=== PATIENT | female | born 1935 | race Two or more races ===

== ENCOUNTER 2017-10-26 10:51 | Outpatient (CLI) | payer OTHER ==
[~2017-10-26 10:51] MED LIST: CATAFLAM50 MG PO; CEFADROXIL500 MG PO; CRESTOR20 MG; ELIQUIS5 MG; GABAPENTIN100 MG PO; GUAIFENESI100 MG/52 PO; HYZAAR 100-121 UDTAB; Neurontin PO; PERCOCET 5/3251 TAB PO; POM (MEDICAMENTO EN PISO) PO; PROTONIX40 M1 PO; TESSALON PERLE100 M1 PO; TUSSI-PRES B LIQ5 ML PO; ZETIA10 MG; [UNRECOGNIZED DRUG - OTHER]
== END 2017-10-26 11:00 | disposition home or self-care (01) ==
LOC: MRI 10:51
DX: M54.5 Low back pain (principal)
CPT/HCPCS: 72148

== ENCOUNTER → 2018-03-31 | Outpatient (CLI) | payer OTHER ==
[~2018-03-31] MED LIST changes: +ACETAMINOPHEN-1 EAC2 PO
== END | disposition home or self-care (01) ==
LOC: RAD 15:46
DX: R07.82 Intercostal pain (principal)

== ENCOUNTER 2018-07-09 09:04 | Outpatient (CLI) | payer OTHER | END 2018-07-09 09:17 | disposition home or self-care (01) | LOC: RAD 09:04 | DX: M54.12 Radiculopathy, cervical region (principal); E04.1 Nontoxic single thyroid nodule; E03.8 Other specified hypothyroidism | CPT/HCPCS: 72141 ==

== ENCOUNTER → 2018-10-01 | Outpatient (CLI) | payer OTHER | END | disposition home or self-care (01) | LOC: NUCLEAR 09-30 07:00 | DX: I20.0 Unstable angina (principal); I25.10 Atherosclerotic heart disease of native coronary artery without angina pectoris; I11.9 Hypertensive heart disease without heart failure; E78.2 Mixed hyperlipidemia | CPT/HCPCS: 78452; 93017; A9500 ==

== ENCOUNTER 2018-11-03 14:39 | Outpatient (CLI) | payer OTHER | END 2018-11-03 14:46 | disposition home or self-care (01) | LOC: TOM 14:39 | DX: D48.7 Neoplasm of uncertain behavior of other specified sites (principal) ==

== ENCOUNTER 2018-11-15 11:51 | Outpatient (CLI) | payer OTHER | END 2018-11-15 12:01 | disposition home or self-care (01) | LOC: LAB 11:51 | DX: N20.0 Calculus of kidney (principal); Z51.81 Encounter for therapeutic drug level monitoring ==

== ENCOUNTER 2018-11-16 09:26 | Outpatient (CLI) | payer OTHER | END 2018-11-16 09:40 | disposition home or self-care (01) | LOC: TOM 09:26 | DX: R10.30 Lower abdominal pain, unspecified (principal); K57.30 Diverticulosis of large intestine without perforation or abscess without bleeding | CPT/HCPCS: 74178; Q9965 ==

== ENCOUNTER 2019-01-07 10:11 | Outpatient (CLI) | payer OTHER ==
[~2019-01-07] VITALS: Ht 152.4 cm; Wt 69.4 kg
== END 2019-01-07 10:30 | disposition home or self-care (01) ==
LOC: OFIC 805 10:11
DX: R42 Dizziness and giddiness (principal)

== ENCOUNTER → 2019-04-25 | Outpatient (CLI) | payer OTHER | END | disposition home or self-care (01) | LOC: RAD 11:31 | DX: M79.672 Pain in left foot (principal) ==

== ENCOUNTER → 2019-05-18 | Outpatient (CLI) | payer OTHER | END | disposition home or self-care (01) | LOC: MRI 14:45 | DX: M79.672 Pain in left foot (principal) | CPT/HCPCS: 73718 ==

== ENCOUNTER 2019-06-23 09:50 | Outpatient (CLI) | payer OTHER | END 2019-06-23 09:54 | disposition home or self-care (01) | LOC: RAD 09:50 | DX: R05 Cough (principal); J01.90 Acute sinusitis, unspecified; J32.8 Other chronic sinusitis ==

== ENCOUNTER 2019-08-27 09:33 | Emergency (ER) | payer OTHER ==
[~2019-08-27] VITALS: Ht 152.4 cm; Wt 68.9 kg
== END 2019-08-27 15:40 | disposition home or self-care (01) ==
LOC: ER 09:33
DX: J06.9 Acute upper respiratory infection, unspecified (principal)

== ENCOUNTER → 2019-09-07 | Outpatient (CLI) | payer OTHER | END | disposition home or self-care (01) | LOC: TOM 15:16 → RAD 15:16 | DX: R05 Cough (principal) ==

== ENCOUNTER 2020-09-04 12:12 | Outpatient (CLI) | payer OTHER ==
[~2020-09-04 12:12] MED LIST changes: +PREGABALIN25 MG PO
== END 2020-09-04 12:27 | disposition home or self-care (01) ==
LOC: NUCLEAR 12:12
PROVIDERS: ATTEND Orthopaedic Surgery Adult Reconstructive Orthopaedic Surgery
DX: M81.6 Localized osteoporosis [Lequesne] (principal)

== ENCOUNTER 2021-02-26 09:48 | Emergency (ER) | payer OTHER ==
[~2021-02-26] VITALS: Ht 154.9 cm; Wt 69.9 kg
[~2021-02-26 09:48] MED LIST changes: +PERCOCET 5-3251 EACH PO; +ROBAXIN-750750 MG PO
[2021-02-26] MEDS ORDERED: COZAAR50 MG (10:05)
== END 2021-02-26 16:03 | disposition home or self-care (01) ==
LOC: ER 09:48 → CPU-OBS 10:19 → ER 10:19
DX: R07.89 Other chest pain (principal)

== ENCOUNTER → 2021-03-29 | Outpatient (CLI) | payer OTHER ==
[~2021-03-29] MED LIST changes: +COZAAR50 MG
== END | disposition home or self-care (01) ==
LOC: SONOGRAMA 11:23
PROVIDERS: ATTEND Family Medicine
DX: E04.1 Nontoxic single thyroid nodule (principal)

== ENCOUNTER → 2021-05-18 10:32 | Outpatient (CLI) | payer OTHER | END | disposition home or self-care (01) | LOC: RAD 10:32 | PROVIDERS: ATTEND Internal Medicine Nephrology | DX: M25.561 Pain in right knee (principal); M25.562 Pain in left knee; M77.8 Other enthesopathies, not elsewhere classified ==

== ENCOUNTER 2021-07-22 09:00 | Outpatient (CLI) | payer OTHER | END 2021-07-22 09:15 | disposition home or self-care (01) | LOC: PPH VACUNA 09:00 | PROVIDERS: ATTEND Emergency Medicine Pediatric Emergency Medicine | DX: Z23 Encounter for immunization (principal) ==

== ENCOUNTER 2021-08-29 09:06 | Outpatient (CLI) | payer OTHER | END 2021-08-29 09:07 | disposition home or self-care (01) | LOC: NUCLEAR 09:06 | PROVIDERS: ATTEND Internal Medicine Nephrology | DX: I35.0 Nonrheumatic aortic (valve) stenosis (principal) ==

== ENCOUNTER 2021-12-10 10:55 | Outpatient (CLI) | payer OTHER | END 2021-12-10 10:57 | disposition home or self-care (01) | LOC: RAD 10:55 | PROVIDERS: ATTEND Family Medicine | DX: M54.2 Cervicalgia (principal) ==

== ENCOUNTER 2022-06-03 09:40 | Outpatient (CLI) | payer OTHER | END 2022-06-03 09:45 | disposition home or self-care (01) | LOC: NUCLEAR 09:40 | DX: M81.8 Other osteoporosis without current pathological fracture (principal); Z88.8 Allergy status to other drugs, medicaments and biological substances; Z88.5 Allergy status to narcotic agent ==

== ENCOUNTER 2022-06-17 13:56 | Outpatient (CLI) | payer OTHER | END 2022-06-17 14:05 | disposition home or self-care (01) | LOC: MRI 13:56 | DX: M51.16 Intervertebral disc disorders with radiculopathy, lumbar region (principal) | CPT/HCPCS: 72148 ==

== ENCOUNTER 2022-08-27 08:47 | Outpatient (CLI) | payer OTHER | END 2022-08-27 08:51 | disposition home or self-care (01) | LOC: RAD 08:47 | PROVIDERS: ATTEND Internal Medicine Nephrology | DX: M25.561 Pain in right knee (principal); M25.562 Pain in left knee ==

== ENCOUNTER 2023-04-21 11:46 | Outpatient (CLI) | payer OTHER ==
[~2023-04-21 11:46] MED LIST changes: +ACETAMINOPHEN-1 EAC1 PO; +LIDODERM1 EACH TOP
== END 2023-04-21 11:51 | disposition home or self-care (01) ==
LOC: RAD 11:46
DX: R07.89 Other chest pain (principal)